=== PATIENT | male | born 1965 | race Caucasian/White ===

== ENCOUNTER 2018-11-19 05:18 | Emergency (ER) | END 2018-11-19 06:59 | disposition home or self-care (01) ==

== ENCOUNTER 2018-11-23 08:32 | Emergency (ER) | payer OTHER ==
[~2018-11-23] VITALS: Wt 111.6 kg
[~2018-11-23 08:32] MED LIST: AUG875 PO; CIPR500T4 PO; FLUT16SP17 NASAL; LORA-186 PO; TAMS-14 PO
--- NOTE | 2018-11-23 09:03 | ERD ---
ER Documentation Chief Complaint Chief Complaint PAIN AT HICKMAN CATH SITE SINCE YESTERDAY HPI This is a 53-year-old male who presents to the emergency room for evaluation of Hickman catheter removal. The patient states that he did have a Hickman catheter placed approximately 4 days ago for urinary retention and states that it is bothering him and he wants it removed. The patient denies any fevers or chills or nausea or vomiting associated with this discomfort. ROS All systems reviewed and are negative except as per history of present illness. Medications Home Meds Active Scripts Tamsulosin Hcl* (Flomax*) 0.4 Mg Cap.er.24h, 0.4 MG PO QPM, #30 CAP Prov:VIVEK CHAVEZ S. 11/19/18 Ciprofloxacin Hcl* (Ciprofloxacin Hcl*) 500 Mg Tablet, 500 MG PO BID for 7 Days, TAB Prov:VIVEK CHAVEZ S. 11/19/18 Loratadine* (Claritin*) 10 Mg Tablet, 10 MG PO DAILY, #30 TAB Prov:JILL HAQUE NP 07/28/15 Fluticasone Propionate* (Fluticasone Propionate* Nasal) 50 Mcg/[place] - 16 Gm [place].susp, 1 SPRAY NASAL BID, #1 EA TO EACH NOSTRIL Prov:JILL HAQUE NP 07/28/15 Amoxicillin-Clavulanate K* (Augmentin*) 875 Mg Tab, 875 MG PO BID for 10 Days Prov:JILL HAQUE NP 07/28/15 Allergies Allergies: Coded Allergies: No Known Allergy (Unverified , 07/28/15) PMhx/Soc History of Surgery: No Anesthesia Reaction: No Hx Neurological Disorder: No Hx Respiratory Disorders: No Hx Cardiac Disorders: Yes (htn) Hx Psychiatric Problems: No Hx Miscellaneous Medical Probl: No Hx Alcohol Use: No Hx Substance Use: No Hx Tobacco Use: No Physical Exam Vitals Vital Signs Date Temp Pulse Resp B/P (MAP) Pulse Ox O2 O2 Flow FiO2 Time Delivery Rate 11/23/18 98.1 65 18 132/71 99 08:35 (91) Physical Exam Const: No acute distress Head: Atraumatic Eyes: Normal Conjunctiva ENT: Normal External Ears, Nose and Mouth. Neck: Full range of motion. No meningismus. Resp: Clear to auscultation bilaterally Cardio: Regular rate and rhythm, no murmurs Abd: Soft, non tender, non distended. Normal bowel sounds Skin: Urinary catheter in place with output, no petechiae or rashes Back: No midline or flank tenderness Ext: No cyanosis, or edema Neur: Awake and alert Psych: Normal Mood and Affect Procedures/MDM This 53-year-old male presents to the emergency room for evaluation of Hickman catheter removal. The patient did have a Hickman catheter placed for urinary retention. Hickman catheter was removed and the patient was able to void in the emergency room. I doubt the patient has any significant retention at this time and he will be discharged with outpatient urology referral. Departure Diagnosis: Primary Impression: Urinary catheter insertion/adjustment/removal Condition: Stable NATALIE WALTERS DO Nov 23, 2018 09:03
== END 2018-11-23 10:00 | disposition home or self-care (01) ==
LOC: E/R 08:32
DX: Z46.6 Encounter for fitting and adjustment of urinary device (principal); I10 Essential (primary) hypertension
CPT/HCPCS: 99283